=== PATIENT | male | born 1985 | race Caucasian/White ===

== ENCOUNTER 2016-09-05 18:16 | Emergency (ER) | payer OTHER ==
[~2016-09-05] VITALS: Ht 180.3 cm; Wt 97.1 kg
[2016-09-05 18:19] VITALS: BP 115/66
[2016-09-05] MEDS ORDERED: IBUP600T26 PO (19:01)
[2016-09-05] MEDS ORDERED: PENI250T57 PO (19:01)
== END 2016-09-05 19:28 | disposition home or self-care (01) ==
LOC: M ED 19:00
DX: J02.9 Acute pharyngitis, unspecified (principal)

== ENCOUNTER 2017-05-10 08:22 | Emergency (ER) | payer OTHER ==
[~2017-05-10] VITALS: Ht 180.3 cm; Wt 97.4 kg
[~2017-05-10 08:22] MED LIST: IBUP-1022 PO; PENI250T57 PO
[2017-05-10 08:23] VITALS: BP 116/62
[2017-05-10] MEDS ORDERED: TYLE325C PO (08:45)
[2017-05-10] MEDS ORDERED: ZITHTAB PO (09:47)
[2017-05-10] MEDS ORDERED: TESS100C PO (09:47)
== END 2017-05-10 09:59 | disposition home or self-care (01) ==
LOC: M ED 08:22
DX: J01.90 Acute sinusitis, unspecified (principal); R05 Cough

== ENCOUNTER 2017-11-06 12:09 | Emergency (ER) | payer OTHER | END 2017-11-06 13:28 | disposition home or self-care (01) | LOC: M ED 12:09 | DX: H60.91 Unspecified otitis externa, right ear (principal); H66.91 Otitis media, unspecified, right ear | CPT/HCPCS: 99282 ==